=== PATIENT | female | born 1970 ===

== ENCOUNTER 2021-12-16 09:26 | Day surgery (SDC) | payer SELFPAY ==
[~2021-12-16 09:26] MED LIST: Lactated Ringers 1,000 ML IV SCH; Lidocaine 1%/Sod Bicarbonate in NS 8.4% 1 ML Syringe IDERM PRN; Sodium Chloride 0.9% 10 ML Syringe FLUSH PRN; Sodium Chloride 0.9% 10 ML Syringe FLUSH SCH
[2021-12-16] MEDS ORDERED: Ondansetron 4 MG/2 ML SDV IVPUSH SCH (10:16)
[2021-12-16] MEDS ORDERED: Lidocaine 1% 4 ML ONE (10:44)
[2021-12-16] MEDS ORDERED: fentaNYL 100 MCG/2 ML SDV ONE (10:45)
[2021-12-16] MEDS ORDERED: Propofol 200 MG/20 ML SDV ONE ×2 (10:45→11:00)
== END 2021-12-16 12:05 | disposition home or self-care (01) ==
LOC: JD.SDS 09:26
PROVIDERS: ATTEND Surgery
DX: Z12.11 Encounter for screening for malignant neoplasm of colon (principal); K63.5 Polyp of colon; U07.1 COVID-19; E03.9 Hypothyroidism, unspecified; D72.819 Decreased white blood cell count, unspecified; E55.9 Vitamin D deficiency, unspecified; D69.6 Thrombocytopenia, unspecified; Z79.890 Hormone replacement therapy; Z79.02 Long term (current) use of antithrombotics/antiplatelets; Z98.890 Other specified postprocedural states; Z79.899 Other long term (current) drug therapy
CPT/HCPCS: 45380; J2405; J2704; J3010; J7120; 00812